=== PATIENT | female | born 1970 | race Caucasian/White ===

== ENCOUNTER 2022-05-15 06:23 | Day surgery (SDC) | payer BC ==
[2022-05-09 09:01] LABS: Absolute Lymphocytes (CBC) 1.8 K/uL (0.7-4.9); Hematocrit 44.9 % (36.0-45.0); Lymphocytes % 21.9 % (15.3-44.8); MCV 88.4 fL (80-100); MPV 6.8 fL (7.6-11.3); RBC Red Blood Cell Count 5.08 M/uL (3.86-4.86)
[2022-05-09 09:18] LABS: Potassium 4.3 mmol/L (3.5-5.1)
--- NOTE | 2022-05-09 09:55 | RAD REPORT ---
EXAM DESCRIPTION: RAD - Chest Pa And Lat (2 Views) - 05/09/2022 8:37 am CLINICAL HISTORY: Pre op pending mass removal right foot COMPARISON: None TECHNIQUE: Frontal and lateral views of the chest were obtained. FINDINGS: The lungs are clear of failure, infiltrate or mass. A mild prominence of the interstitial pattern is believed be baseline. Heart size is normal and central vasculature is within normal limi ts. No pleural effusion or pneumothorax seen. No acute bony finding noted. No aortic abnormality. IMPRESSION: No acute cardiopulmonary process.
--- NOTE | 2022-05-09 14:50 | EKG ---
Test Date: 2022-05-09 Test Time: 08:24:16 Literature Teacher: BENITO MEASUREMENT RESULTS: Intervals: Rate: 78 MA: 200 QRSD: 86 QT: 386 QTc: 440 Welsh: P: 72 MA: 200 QRS: 77 T: 66 INTERPRETIVE STATEMENTS: Normal sinus rhythm with sinus arrhythmia Normal ECG No previous ECG available for comparison Electronically Signed On 05-09-22 14:50:11 AUTOMOTIVE DETAILER by Tiburcio Nath
--- NOTE | 2022-05-14 12:41 | PREOPHP ---
Date of Admission: 05/15/2022 History Of Present Illness: This patient presented to my office with a chief complaint of a painful growth present in the bottom of the right foot. This growth has been present for some time. The pat ient has tried conservative treatments, anti-inflammatory medication, ice to no avail and requests ev aluation. The pain is sharp in nature, moderate in severity, worse with activity, improved with rest . Location is the medial fascial band of the right foot. Past Medical History: Includes diabetes. Past Surgical History: Includes cholecystectomy and carpal tunnel release. Family History: Unremarkable. Medications: Include Dupixent 300 mg, gabapentin 100 mg, trazodone 50 mg, and Mounjaro 2.5 mg. Allergies: TO TRAMADOL. Social History: The patient is a current tobacco user. No history of alcohol or IV drug use. Physical Examination: Vital Signs: 186 in weight, height 5 feet 2 inches. General Appearance: The patient is healthy, well developed, well nourished, well oriented x3. Cardiovascular: Evaluation reveals dorsalis pedis and posterior tibial pulses to be 4/4 bilaterally. Capillary refill time is less than 3 seconds to all toes. Temperature gradient is within normal li mits. No claudication complaint, varicosities, or signs of DVT. Musculoskeletal: Evaluation reveals a normal foot structure. Digits are within normal alignment. M uscle knee and ankle assessment are all within normal limits. Plantar fascia has no tenderness other than the area of the soft tissue mass, which is located in the medial fascial band, mid arch and the plantar aspect of the right foot is not freely movable into the skin and measures approximately 2 cm x 1.5 cm with a second area approximately 2 cm x 1 cm. No skin changes are seen. Dermatologic: Evaluation for the remainder of the foot reveals mild peeling of the plantar aspect of the foot due to tinea pedis. Neurologic: Evaluation reveals deep tendon reflexes for the patellar and Achilles to be 5/5 bilatera lly. Vibratory and sharp dull sensation within normal limits. Laboratory Data: The x-ray evaluation of the foot reveals no changes in the soft tissue the area of marker and no bony changes at the area in question. 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 Recommendations: MRI that had been performed shows a 12 x 6 x 10 mm well-defined nodule in the plant ar fascia at the level of the mid foot directly beneath the marker consistent with plantar fibromatos is. The treatment plan is for excision of soft tissue mass with biopsy. The patient understands the risks, benefits, and alternatives of the above-mentioned procedure including, but not limited to the risk of pain, swelling, numbness, stiffness, infection, nonhealing of skin or soft tissue due to the presence of an undiagnosed soft tissue mass with discomfort. Recommended treatment is for excision for biopsy. The patient understands the risks of return of the growth. The patient also was made aw are of COVID-19 risk and following CDC guidelines to avoid complications and increased risk of blood clots and postop delayed healing. The patient declines seal-tight, states she has her own to keep th e bandage site dry. The patient is scheduled for surgery at [facility] on May 15, 2022. Medical H and P will be completed by Anesthesia. RADHA Voice ID: [id number]
[2022-05-15] MEDS ORDERED: NA CHLORIDE 0.9% 1,000 ML ONE (06:52)
[2022-05-15] MEDS ORDERED: CEFAZOLIN SODIUM 1 GM/VIAL ONE (06:52)
[2022-05-15] MEDS ORDERED: LIDOCAINE 1% MPF 30 ML VIAL ONE (07:00)
[2022-05-15] MEDS ORDERED: FENTANYL CITR 100 MCG/2 ML ONE (07:19)
[2022-05-15] MEDS ORDERED: propofoL 200 MG/20 ML VIAL IV ONE ×2 (07:19→07:39)
[2022-05-15] MEDS ORDERED: LIDOCAINE 2% MPF 5 ML VIAL ONE (07:19)
[2022-05-15] MEDS ORDERED: MIDAZOLAM HCL 2 MG/2 ML INJ ONE (07:19)
[2022-05-15] MEDS ORDERED: KETOROLAC 30 MG/ML INJ ONE (07:51)
[2022-05-15] MEDS ORDERED: ONDANSETRON 4 MG/2 ML VIAL ONE (07:58)
[2022-05-15 08:45] LABS: Urine Specific Gravity/Preg >1.030 (1.005-1.030)
[2022-05-15 09:21] VITALS: BP 111/82; TEMP 96.7; O2SAT 98
--- NOTE | 2022-05-15 11:14 | OP ---
Date of Procedure: 05/15/2022 Surgeon: Kvng Carrington DPM Preoperative Diagnosis: Soft tissue mass, plantar fascia, right foot. Postoperative Diagnosis: Plantar fibromatosis, plantar fascia, right foot. Anesthesia: 10 cc of 0.5% Marcaine plain. Description Of Procedure: Patient was brought into the operating room, placed on the operating table in a supine position. Once adequate IV sedation was obtained, patient was injected with a total of 10 cc of 0.5% Marcaine plain. Patient was prepped and draped in the usual sterile manner. Right ext remity was elevated and an Esmarch bandage was applied to exsanguinate the blood supply. Pneumatic a nkle tourniquet was elevated to 250 mmHg. Esmarch was removed. Attention was then directed to the p lantar aspect of the right foot where the soft tissue mass was isolated in the medial fascial band ju st proximal to the first metatarsal head area approximately 2 cm proximal. The area was approached a nd a curvilinear incision was made with a 15 blade approximately 3 cm long, encompassing the soft tis alfredo mass. The incision was deepened via sharp dissection just to the level of the subcutaneous tissu e and then was feathered off the soft tissue mass, which was immediately visible in the plantar fasci a, maintaining a layer of fat on the skin. All neurologic structures were avoided. All bleeders wer e clamped and bovied. The soft tissue mass was isolated, found to be approximately 2 cm in diameter. There was no proximal extension. Even though there was some bumpy areas in the fascia, there was n ormal appearance of fascia with striations as opposed to the cauliflower appearance of the soft tissu e mass. The soft tissue mass was then approached. A stab incision was made approximately 2 mm off t he soft tissue mass to obtain normal fascia. A hemostat was then approached and freed the plantar fa scia from the superior muscle belly. The hemostat was then used with a 15 blade to outline the soft tissue mass and cut it from the normal fascia maintaining a 2 mm border. It should be noted that med ially the growth extended to the medial border of the plantar fascia. The soft tissue mass was then grabbed with an iris clamp and removed with sharp and blunt dissection in toto maintaining a 2 mm mitchell an border. The proximal area was inspected with extension of the curvilinear incision slightly and s eemed to be normal fascia. The area was flushed with copious amounts of sterile saline. Superior mu scle belly was intact without any damage. Subcutaneous tissue was then reapproximated utilizing 0 Vi cryl suture and skin was reapproximated utilizing 3-0 nylon suture. The ear was dressed with Adaptic , dry sterile gauze, dry sterile Winston, Kerlix, and an Keaton bandage. Pneumatic ankle tourniquet was d eflated and capillary return was seen to be instantaneous to all digits. Patient was sent to same-da y surgery in satisfactory condition. ANA/JENNIFER Voice ID: [id number] Report ID: [id number]
--- NOTE | 2022-05-15 11:20 | DS ---
Date of Discharge: 05/15/2022 Date Of Surgery: 05/15/2022. Surgeon: Kvng Carrington DPM Preoperative Diagnosis: Soft tissue mass, plantar fascia, right foot. Postoperative Diagnosis: Plantar fibromatosis, soft tissue mass, plantar fascia, right foot. Anesthesia: Via local infiltration. Hospital Course: Patient tolerated the procedure and anesthesia well. Patient was sent to same-day surgery in satisfactory condition. Patient will be discharged per anesthesia guidelines. Procedure was excision of soft tissue mass, plantar fascia, right foot. Patient has been given written postop instructions as well as emergency phone number. Patient will be followed in my office for postoperat mervin care and has been given medication for pain. ANA/JENNIFER Voice ID: [id number] Report ID: [id number]
== END 2022-05-15 09:15 | disposition home or self-care (01) ==
LOC: OR 06:23
PROVIDERS: ATTEND Podiatrist
PROC: 0JBQ0ZZ Excision of Right Foot Subcutaneous Tissue and Fascia, Open Approach (ICD-10-PCS; principal; 2022-05-15 07:30)
DX: R22.41 Localized swelling, mass and lump, right lower limb (principal); E11.9 Type 2 diabetes mellitus without complications
CPT/HCPCS: 93005; 85025; 80048; 36415; 81025; 82947; 88304; 71046; 28039; J2704 ×2; J2001; J2250; J3010; J7030; J2405; J0690